=== PATIENT | male | born 1995 | race Caucasian/White ===

== ENCOUNTER 2022-11-23 23:28 | Emergency (ER) | payer BC ==
--- NOTE | 2022-11-23 23:42 | ED ---
Psych HPI - General Source: EMS, RN notes reviewed, old records reviewed Mode of arrival: EMS Limitations: no limitations - History of Present Illness MD Complaint: suicidal ideation, feels depressed -: unknown Associated Psychiatric Symptoms: depression, suicidal ideation History of same: Yes Quality: constant Improves With: none Context: recent alcohol abuse, significant life stressor Associated Symptoms: denies other symptoms If Self Harm: admits thoughts of self harm <Asad Holley - Last Filed: 11/24/22 00:44> <Tatum Woodward - Last Filed: 11/26/22 10:47> - General Chief Complaint: Psychiatric Symptoms Stated Complaint: Mental Health Time Seen by Provider: 11/23/22 23:36 - History of Present Illness Initial Comments: This is a 19-year-old male DF for self harming behavior. Patient did have alcohol intoxication today. Patient did self harm with A left wrist. Patient presents by EMS and is not presenting in history of present illness. (Asad Holley) - Related Data Home Medications Medication Instructions Recorded Confirmed Dextroamphetamine/Amphetamine 20 mg PO DIRECTED 11/24/22 11/24/22 [Adderall Xr 20 mg Capsule] [place] Carbonate 900 mg PO DIRECTED 11/24/22 11/24/22 QUEtiapine [SEROquel] 50 mg PO HS 11/24/22 11/24/22 Sildenafil Citrate 50 mg PO DIRECTED PRN 11/24/22 11/24/22 clonazePAM [KlonoPIN] 0.5 mg PO DIRECTED PRN 11/24/22 11/24/22 Allergies Allergy/AdvReac Type Severity Reaction Status Date / Time No Known Allergies Allergy Verified 11/24/22 09:27 Review of Systems ROS Other: All systems not noted in ROS Statement are negative. <Asad Holley - Last Filed: 11/24/22 00:44> ROS Other: All systems not noted in ROS Statement are negative. <Tatum Woodward - Last Filed: 11/26/22 10:47> ROS Statement: Those systems with pertinent positive or pertinent negative responses have been documented in the HPI. General Exam General appearance: alert, in no apparent distress Head exam: Present: atraumatic, normocephalic, normal inspection Eye exam: Present: normal appearance, PERRL, EOMI. Absent: scleral icterus, conjunctival injection, periorbital swelling ENT exam: Present: normal exam, mucous membranes moist Neck exam: Present: normal inspection. Absent: tenderness, meningismus, lymphadenopathy Respiratory exam: Present: normal lung sounds bilaterally. Absent: respiratory distress, wheezes, rales, rhonchi, stridor Cardiovascular Exam: Present: regular rate, normal rhythm, normal heart sounds. Absent: systolic murmur, diastolic murmur, rubs, gallop, clicks GI/Abdominal exam: Present: soft, normal bowel sounds. Absent: distended, tenderness, guarding, rebound, rigid Extremities exam: Present: normal inspection, full ROM, normal capillary refill. Absent: tenderness, pedal edema, joint swelling, calf tenderness Back exam: Present: normal inspection Neurological exam: Present: alert, oriented X3, CN II-XII intact Psychiatric exam: Present: normal affect, normal mood Skin exam: Present: warm, dry, intact, normal color. Absent: rash <Asad Holley - Last Filed: 11/24/22 00:44> Course <Asad Holley - Last Filed: 11/24/22 00:44> Vital Signs 11/23/22 11/24/22 11/24/22 23:30 07:20 11:24 Temperature 98.6 F 98.3 F Pulse Rate 92 68 70 Respiratory 16 20 Rate Blood Pressure 152/98 130/70 149/93 O2 Sat by Pulse 99 98 98 Oximetry - Reevaluation(s) Reevaluation #1: 11/24/22 00:44 medical medical record is reviewed (Asad Holley) Reevaluation #2: 11/24/22 04:44 Medically clear for psychiatric evaluation (Asad Holley) Procedures - Laceration Laceration #1 Consent Obtained: verbal consent Indication: laceration Site: upper extremity Size (cm): 4 Description: linear Depth: simple, single layer Anesthetic Used: lidocaine 2%, with epi Anesthesia Technique: local infiltration Amount (mls): 5 Pre-repair: wound explored, irrigated extensively Type of Sutures: nylon Size of Sutures: 4-0 Number of Sutures: 7 Technique: simple, interrupted Laceration #2 Consent Obtained: verbal consent Indication: laceration Site: upper extremity Size (cm): 2 Description: linear Depth: simple, single layer Anesthetic Used: lidocaine 2%, with epi Anesthesia Technique: local infiltration Amount (mls): 3 Pre-repair: wound explored, irrigated extensively Type of Sutures: nylon Size of Sutures: 4-0 Number of Sutures: 4 Technique: simple, interrupted Laceration #3 Consent Obtained: verbal consent Indication: laceration Site: upper extremity Size (cm): 1 Description: linear Depth: simple, single layer Anesthetic Used: lidocaine 2%, with epi Anesthesia Technique: local infiltration Amount (mls): 2 Pre-repair: wound explored, irrigated extensively Type of Sutures: nylon Size of Sutures: 4-0 Number of Sutures: 1 Technique: other (figure of 8) <Tatum Woodward - Last Filed: 11/26/22 10:47> Disposition <Asad Holley - Last Filed: 11/24/22 00:44> Is patient prescribed a controlled substance at d/c from ED?: No <Tatum Woodward - Last Filed: 11/26/22 10:47> Clinical Impression: Depression, Self-harming behavior, Laceration Disposition: HOME SELF-CARE Condition: Good Instructions (If sedation given, give patient instructions): Care For Your Stitches (ED), Depression (ED), Stitches Removal (ED), Suicide Prevention (ED) Referrals: None,Stated [REFERRING] - 1-2 days
[2022-11-24] MEDS ORDERED: diphenhydrAMINE 50 MG/ML 1 ML VIAL IM STA (01:47)
[2022-11-24] MEDS ORDERED: LORazepam 2 MG/ML INJ IM STA (01:47)
[2022-11-24] MEDS ORDERED: KETOROLAC 15 MG/ML 1 ML VIAL IVP STA (10:10)
[2022-11-24] MEDS ORDERED: LIDOCAINE 2%-EPI 1:100,000 20 ML VIAL SQ STA (10:16)
[2022-11-24] MEDS ORDERED: clonazePAM 0.5 MG TAB PO STA (11:05)
[2022-11-24 11:27] VITALS: BP 149/93; PULSE 70; RESP 20; TEMP 98.3
== END 2022-11-24 12:20 | disposition home or self-care (01) ==
LOC: EC 23:28
DX: S61.512A Laceration without foreign body of left wrist, initial encounter (principal); F32.A Depression, unspecified; F10.129 Alcohol abuse with intoxication, unspecified; W26.0XXA Contact with knife, initial encounter
CPT/HCPCS: 82075; 99285; 96374; 96372 ×2; 12002; J2060; J1200; J1885